=== PATIENT | male | born 1950 | race Caucasian/White ===

== ENCOUNTER 2016-11-07 23:45 | Emergency (ER) | payer OTHER, BC ==
--- NOTE | 2016-11-08 00:31 | ED NURSING NOTES ---
Clinical Report - Nurses [facility] [address] [place] [address] 11/07/2016 23:46 Patient: KIZZY BRUNO TRIAGE Triage time 23:56. Acuity: LEVEL 4. Chief Complaint: Location of symptoms- left leg. 00:03. Alert. SEPSIS SCREEN: Sepsis Screen. Negative (no infection suspected/documented). RUPINDER COMA SCORE: Rupinder Coma Scale: 15- eyes open spontaneously (4); best verbal response- oriented x 4 (5); best motor response- obeys commands (6). --00:03 Mat Rojas R.N. 23:56 11/07/16. BP: 145/93. HR: 66. RR: 17. O2 saturation: 98%. Temp: 97.8 F (oral). Pain level now: 11/25. --00:03 Mat Rojas R.N. Weight: 121.5 kg. Height/Length: 70 inches. BMI: 38.4. --00:02 Mat Rojas R.N. Medications Aleve Oral, 2x a day. --00:00 Mat Rojas R.N. Diazepam Oral 5 mg, as needed. --00:00 Mat Rojas R.N. [place] Oral (Tablet 10-325 mg) 1 tablet, every 4 hrs as needed. --23:59 Mat Rojas R.N. ASA Oral 81mg , 2 x daily. --23:59 Mat Rojas R.N. Gabapentin Oral 100 mg, 2x a day. --23:59 Mat Rojas R.N. Medication/allergy information source: the patient. --00:03 Mat Rojas R.N. Allergies No Known Drug Allergy. --00:01 Mat Rojas R.N. History Arrived by private vehicle. Historian: daughter and patient. Accompanied by family. Primary physician (None). No injury occurred. This occurred today. ( Patient reports having left knee surgery 14 days, then to day incision site opened up). Treatment TOBACCO CURER: None. PAST MEDICAL HX: Tetanus status: up-to-date. Immunizations: up-to-date. SOCIAL HX: Former smoker, end date 1976. Occasional alcohol use. No drug use. No infectious disease exposure. ABUSE ASSESSMENT: No report of abuse. FALL RISK ASSESSMENT: Fall risk assessment completed. No fall risk identified. NUTRITIONAL RISK ASSESSMENT: The nutritional risk assessment revealed no deficiencies. FUNCTIONAL ASSESSMENT: Functional assessment: no impairments noted. LEARNING NEEDS ASSESSMENT: The learning needs assessment revealed no barriers. SKIN INTEGRITY ASSESSMENT: Skin integrity risk assessment completed. No skin integrity risk identified. --00:03 Mat Rojas R.N. PROBLEMS: Lumbar Radiculopathy. --00:01 Mat Rojas R.N. ADDITIONAL SURGERIES: Knee Surgery. --00:01 Mat Rojas R.N. Interventions ID band on patient. To treatment room. --00:03 Mat Rojas R.N. PHYSICAL ASSESSMENT 00:07. Ambulatory to room. GENERAL / NEURO / PSYCH: Oriented X 4. Alert. EXTREMITIES: Neuro-vascular status intact to the extremity. Left knee: erythema (healing incision site with 1/2 cm area with dried blood). SKIN: Skin is warm and dry. --00:07 Mat Rojas R.N. NURSING PROGRESS NOTES 00:07. Two patient identifiers checked. Call light placed in reach. Bed placed in lowest position. Brakes of bed on. Patient ready for evaluation- chart flagged. --00:07 Mat Rojas R.N. 00:07 Dressing removed. --00:29 Mat Rojas R.N. 00:26. Applied dressing consisting of telfa pad. Secured with tape and kerlix. --00:31 Mat Rojas R.N. 00:31. The patient is calm and resting quietly. GENERAL / NEURO / PSYCH: Alert. Oriented X 4. RESPIRATORY: No respiratory distress. SKIN: Skin is warm and dry. --00:34 Mat Rojas R.N. DISPOSITION / DISCHARGE Departure time: 00:33. Condition at departure: stable. No learning barriers present. Discharge instructions provided and reviewed with the patient. Patient verbalized understanding. Written instructions provided in Vincentian. The patient was discharged home and accompanied by family. He left the Emergency Department ambulatory and via private vehicle. Family member driving. FALL RISK ASSESSMENT: Fall risk assessment completed. No fall risk identified. --00:33 Mat Rojas R.N. Locked/Released at 11/08/2016 0:34 by Mat Rojas R.N.
--- NOTE | 2016-11-08 00:31 | ED NURSING NOTES ---
Clinical Report - Nurses [place] [address] [place] [address] 11/07/2016 23:46 Patient: KIZZY BRUNO TRIAGE Triage time 23:56. Acuity: LEVEL 4. Chief Complaint: Location of symptoms- left leg. 00:03. Alert. SEPSIS SCREEN: Sepsis Screen. Negative (no infection suspected/documented). RUPINDER COMA SCORE: Rupinder Coma Scale: 15- eyes open spontaneously (4); best verbal response- oriented x 4 (5); best motor response- obeys commands (6). --00:03 Mat Rojas R.N. 23:56 11/07/16. BP: 145/93. HR: 66. RR: 17. O2 saturation: 98%. Temp: 97.8 F (oral). Pain level now: 11/25. --00:03 Mat Rojas R.N. Weight: 121.5 kg. Height/Length: 70 inches. BMI: 38.4. --00:02 Mat Rojas R.N. Medications Aleve Oral, 2x a day. --00:00 Mat Rojas R.N. Diazepam Oral 5 mg, as needed. --00:00 Mat Rojas R.N. [place] Oral (Tablet 10-325 mg) 1 tablet, every 4 hrs as needed. --23:59 Mat Rojas R.N. ASA Oral 81mg , 2 x daily. --23:59 Mat Rojas R.N. Gabapentin Oral 100 mg, 2x a day. --23:59 Mat Rojas R.N. Medication/allergy information source: the patient. --00:03 Mat Rojas R.N. Allergies No Known Drug Allergy. --00:01 Mat Rojas R.N. History Arrived by private vehicle. Historian: daughter and patient. Accompanied by family. Primary physician (None). No injury occurred. This occurred today. ( Patient reports having left knee surgery 14 days, then to day incision site opened up). Treatment OPTIMIZATION ENGINEER: None. PAST MEDICAL HX: Tetanus status: up-to-date. Immunizations: up-to-date. SOCIAL HX: Former smoker, end date 1976. Occasional alcohol use. No drug use. No infectious disease exposure. ABUSE ASSESSMENT: No report of abuse. FALL RISK ASSESSMENT: Fall risk assessment completed. No fall risk identified. NUTRITIONAL RISK ASSESSMENT: The nutritional risk assessment revealed no deficiencies. FUNCTIONAL ASSESSMENT: Functional assessment: no impairments noted. LEARNING NEEDS ASSESSMENT: The learning needs assessment revealed no barriers. SKIN INTEGRITY ASSESSMENT: Skin integrity risk assessment completed. No skin integrity risk identified. --00:03 Mat Rojas R.N. PROBLEMS: Lumbar Radiculopathy. --00:01 Mat Rojas R.N. ADDITIONAL SURGERIES: Knee Surgery. --00:01 Mat Rojas R.N. Interventions ID band on patient. To treatment room. --00:03 Mat Rojas R.N. PHYSICAL ASSESSMENT 00:07. Ambulatory to room. GENERAL / NEURO / PSYCH: Oriented X 4. Alert. EXTREMITIES: Neuro-vascular status intact to the extremity. Left knee: erythema (healing incision site with 1/2 cm area with dried blood). SKIN: Skin is warm and dry. --00:07 Mat Rojas R.N. NURSING PROGRESS NOTES 00:07. Two patient identifiers checked. Call light placed in reach. Bed placed in lowest position. Brakes of bed on. Patient ready for evaluation- chart flagged. --00:07 Mat Rojas R.N. 00:07 Dressing removed. --00:29 Mat Rojas R.N. 00:26. Applied dressing consisting of telfa pad. Secured with tape and kerlix. --00:31 Mat Rojas R.N. 00:31. The patient is calm and resting quietly. GENERAL / NEURO / PSYCH: Alert. Oriented X 4. RESPIRATORY: No respiratory distress. SKIN: Skin is warm and dry. --00:34 Mat Rojas R.N. DISPOSITION / DISCHARGE Departure time: 00:33. Condition at departure: stable. No learning barriers present. Discharge instructions provided and reviewed with the patient. Patient verbalized understanding. Written instructions provided in British. The patient was discharged home and accompanied by family. He left the Emergency Department ambulatory and via private vehicle. Family member driving. FALL RISK ASSESSMENT: Fall risk assessment completed. No fall risk identified. --00:33 Mat Rojas R.N. Locked/Released at 11/08/2016 0:34 by Mat Rojas R.N.
--- NOTE | 2016-11-08 00:31 | ED CLINICAL REPORT ---
Clinical Report - Physicians/Mid Levels [facility] [address] [place] [address] 11/07/2016 23:46 Patient: KIZZY BRUNO Time Seen: 00:08. Arrived- By private vehicle. Historian- patient. HISTORY OF PRESENT ILLNESS Chief Complaint: draining wound. The patient has experienced redness and discharge since the procedure was performed. 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 He had had a prior right total knee replacement. He says that this one is healing much slower than the other. Today he noted a small area at the bottom of the surgical incision that "opened up" and has been draining what sounds like some serous fluid as well as dark heme material). REVIEW OF SYSTEMS No fever, nausea or vomiting. All systems otherwise negative, except as recorded above. PAST HISTORY Ortho - Kathleen. ADDITIONAL NOTES The nursing notes have been reviewed. PHYSICAL EXAM Vital Signs: 11/07/2016 23:56 BP: 145/93. HR: 66. RR: 17. O2 saturation: 98%. Temp: 97.8 F. Pain level now: 2/10. Have been reviewed. Appearance: Alert. Eyes: Pupils equal, round and reactive to light. ENT: Pharynx normal. Neck: Painless ROM. CVS: Heart sounds normal. Respiratory: Breath sounds normal. Abdomen: Soft and nontender. No organomegaly. Back: ROM normal. Skin: Large deep incision with erythema, tenderness and increased warmth on the left knee- with a short1 cm section of dehiscence that is draining dark sanguinous fluid. Extremities: Left thigh: large ecchymosis. No lower extremity edema. Neuro, Vascular and Tendons: Sensation intact. Neuro: No motor deficit. No sensory deficit. PROGRESS AND PROCEDURES Course of Care: 00:32 11/08/16. I reviewed the patient's history and exam findings with his orthopedic surgeon Dr. Mosqeuda. He is adamant that he does not want the patient initiated on any antibiotics. He says that this sounds like an unremarkable postoperative course with the exception of the mild inferior wound dehiscence. He will see the patient in the office today. Patient/family counseled. CLINICAL IMPRESSION Partial left knee wound dehiscence of surgical wound. INSTRUCTIONS Warnings: GENERAL WARNINGS: Return or contact your physician immediately if your condition worsens or changes unexpectedly, if not improving as expected, or if other problems arise. Follow-up: Follow up with an orthopedic surgeon Dr. Mosqueda today. Call for an appointment. Understanding of the discharge instructions verbalized by patient. (Electronically signed by Gilles Townsend MD 11/08/2016 0:34)
--- NOTE | 2016-11-08 00:31 | ED CLINICAL REPORT ---
Clinical Report - Physicians/Mid Levels [facility] [address] [place] [address] 11/07/2016 23:46 Patient: KIZZY BRUNO Time Seen: 00:08. Arrived- By private vehicle. Historian- patient. HISTORY OF PRESENT ILLNESS Chief Complaint: draining wound. The patient has experienced redness and discharge since the procedure was performed. 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 He had had a prior right total knee replacement. He says that this one is healing much slower than the other. Today he noted a small area at the bottom of the surgical incision that "opened up" and has been draining what sounds like some serous fluid as well as dark heme material). REVIEW OF SYSTEMS No fever, nausea or vomiting. All systems otherwise negative, except as recorded above. PAST HISTORY Ortho - Kathleen. ADDITIONAL NOTES The nursing notes have been reviewed. PHYSICAL EXAM Vital Signs: 11/07/2016 23:56 BP: 145/93. HR: 66. RR: 17. O2 saturation: 98%. Temp: 97.8 F. Pain level now: 2/10. Have been reviewed. Appearance: Alert. Eyes: Pupils equal, round and reactive to light. ENT: Pharynx normal. Neck: Painless ROM. CVS: Heart sounds normal. Respiratory: Breath sounds normal. Abdomen: Soft and nontender. No organomegaly. Back: ROM normal. Skin: Large deep incision with erythema, tenderness and increased warmth on the left knee- with a short1 cm section of dehiscence that is draining dark sanguinous fluid. Extremities: Left thigh: large ecchymosis. No lower extremity edema. Neuro, Vascular and Tendons: Sensation intact. Neuro: No motor deficit. No sensory deficit. PROGRESS AND PROCEDURES Course of Care: 00:32 11/08/16. I reviewed the patient's history and exam findings with his orthopedic surgeon Dr. Mosqueda. He is adamant that he does not want the patient initiated on any antibiotics. He says that this sounds like an unremarkable postoperative course with the exception of the mild inferior wound dehiscence. He will see the patient in the office today. Patient/family counseled. CLINICAL IMPRESSION Partial left knee wound dehiscence of surgical wound. INSTRUCTIONS Warnings: GENERAL WARNINGS: Return or contact your physician immediately if your condition worsens or changes unexpectedly, if not improving as expected, or if other problems arise. Follow-up: Follow up with an orthopedic surgeon Dr. Mosqueda today. Call for an appointment. Understanding of the discharge instructions verbalized by patient. (Electronically signed by Gilles Townsend MD 11/08/2016 0:34)
--- NOTE | 2016-11-08 00:35 | ED DISCHARGE INSTRUCTIONS ---
Patient: KIZZY BRUNO General Instructions [facility] VisitID: [id number] [place] [address] 66y, M Registration Date/Time: 11/07/2016 Partial left knee wound dehiscence of surgical wound. INSTRUCTIONS Warnings: GENERAL WARNINGS: Return or contact your physician immediately if your condition worsens or changes unexpectedly, if not improving as expected, or if other problems arise. Follow-up: Follow up with an orthopedic surgeon Dr. Mosqueda today. Call for an appointment. Understanding of the discharge instructions verbalized by patient. (Electronically signed by Gilles Townsend MD 11/08/2016 0:34)
--- NOTE | 2016-11-08 00:35 | ED MED RECONCILIATION SUMMARY ---
Patient: KIZZY BRUNO Medication Reconciliation Report [facility] VisitID: [id number] [address] [place] [address] 66y, M Registration Date/Time: 11/07/2016 Weight: 121.5 kg Height/Length: 70 in. BMI: 38.4 ALLERGIES: No Known Drug Allergy The patient's Home Medications are listed below: THE FOLLOWING MEDICATIONS NEED TO BE RECONCILED: Aleve Oral, 2x a day ASA Oral 81mg , 2 x daily Diazepam Oral 5 mg Gabapentin Oral 100 mg, 2x a day Dante Oral (10-325 mg) 1 tablet, every 4 hrs The source(s) of the original Home Medication information: patient The following Medications were given to the patient in the Emergency Department: None. The following Medications were prescribed to the patient: None.
--- NOTE | 2016-11-08 00:35 | ED MED RECONCILIATION SUMMARY ---
Patient: KIZZY BRUNO Medication Reconciliation Report [facility] VisitID: [id number] [address] [place] [address] 66y, M Registration Date/Time: 11/07/2016 Weight: 121.5 kg Height/Length: 70 in. BMI: 38.4 ALLERGIES: No Known Drug Allergy The patient's Home Medications are listed below: THE FOLLOWING MEDICATIONS NEED TO BE RECONCILED: Aleve Oral, 2x a day ASA Oral 81mg , 2 x daily Diazepam Oral 5 mg Gabapentin Oral 100 mg, 2x a day [place] Oral (10-325 mg) 1 tablet, every 4 hrs The source(s) of the original Home Medication information: patient The following Medications were given to the patient in the Emergency Department: None. The following Medications were prescribed to the patient: None.
--- NOTE | 2016-11-08 00:35 | ED DISCHARGE INSTRUCTIONS ---
Patient: KIZZY BRUNO General Instructions [facility] VisitID: [id number] [place] [address] 66y, M Registration Date/Time: 11/07/2016 Partial left knee wound dehiscence of surgical wound. INSTRUCTIONS Warnings: GENERAL WARNINGS: Return or contact your physician immediately if your condition worsens or changes unexpectedly, if not improving as expected, or if other problems arise. Follow-up: Follow up with an orthopedic surgeon Dr. Mosqueda today. Call for an appointment. Understanding of the discharge instructions verbalized by patient. (Electronically signed by Gilles Townsend MD 11/08/2016 0:34)
--- NOTE | 2016-11-08 00:35 | ED MAR SUMMARY ---
..... Medication Administration Record [facility] [address] [place], [place] [id number] Patient: KIZZY BRUNO [place] Visit ID: [id number] 66y, M Weight: 121.5 kg Height/Length: 70 in BMI: 38.4 ALLERGIES: No Known Drug Allergy
--- NOTE | 2016-11-08 00:35 | ED MAR SUMMARY ---
..... Medication Administration Record [facility] [address] [place], [place] [id number] Patient: KIZZY BRUNO [place] Visit ID: [id number] 66y, M Weight: 121.5 kg Height/Length: 70 in BMI: 38.4 ALLERGIES: No Known Drug Allergy
== END 2016-11-08 00:33 | disposition home or self-care (01) ==
LOC: ED SRH 23:45
DX: T81.31XA Disruption of external operation (surgical) wound, not elsewhere classified, initial encounter (principal); Y83.4 Other reconstructive surgery as the cause of abnormal reaction of the patient, or of later complication, without mention of misadventure at the time of the procedure; Y92.9 Unspecified place or not applicable; Z96.653 Presence of artificial knee joint, bilateral